=== PATIENT | male | born 1960 | race Caucasian/White ===

== ENCOUNTER 2024-03-08 17:25 | Emergency (ER) | payer OTHER ==
[~2024-03-08] VITALS: Ht 175.3 cm; Wt 99.8 kg
[2024-03-08 17:38] VITALS: BP_SYST 130; PULSE 83; RESP 16; TEMP 97.6; O2SAT 94
[2024-03-08] MEDS: MORPHINE 4 MG INJ. 4 MG/ML VIAL IM ONE (19:54)
[2024-03-08] MEDS ORDERED: HYDR-3917 PO (20:12)
[2024-03-08] MEDS ORDERED: IBUP-1971 PO (20:12)
[2024-03-08 21:07] VITALS: BP_SYST 132; PULSE 83; RESP 16; TEMP 97.7; O2SAT 94
== END 2024-03-08 21:07 | disposition home or self-care (01) ==
LOC: SED 17:25
DX: S52.591A Other fractures of lower end of right radius, initial encounter for closed fracture (principal); E11.9 Type 2 diabetes mellitus without complications; Z98.890 Other specified postprocedural states; V89.2XXA Person injured in unspecified motor-vehicle accident, traffic, initial encounter; Y93.89 Activity, other specified; Y92.89 Other specified places as the place of occurrence of the external cause; Y99.8 Other external cause status
CPT/HCPCS: 99283; 29505; 73110; 82948; 96372; J2270